=== PATIENT | male | born 1995 | race Caucasian/White ===

== ENCOUNTER 2018-04-08 18:49 | Emergency (ER) | payer OTHER ==
[~2018-04-08] VITALS: Ht 162.6 cm; Wt 79.8 kg
== END 2018-04-08 22:40 | disposition home or self-care (01) ==
LOC: ER 18:49
DX: M25.551 Pain in right hip (principal)

== ENCOUNTER 2023-12-09 13:02 | Emergency (ER) | payer OTHER ==
[~2023-12-09] VITALS: Ht 162.6 cm; Wt 84.4 kg
[2023-12-09 15:13] LABS: HEMATOCRIT 43.9 % (39.0-48.0); HEMOGLOBIN 14.9 g/dL (13-16.00); MEAN CELL VOLUME 77.7 fL (80.0-100.00); MEAN CORPUSCULAR HEMOGLOBIN 26.4 pg (27.00-32.0); MEAN CORPUSCULAR HGB CONC 33.9 g/dl (32.0-36.0); PLATELET COUNT 153 K/uL (150-450); RED BLOOD COUNT 5.65 M/uL (4.00-6.00); RED CELL DISTRIBUTION WIDTH 13.7 % (11.5-14.5)
[2023-12-09 15:33] LABS: CALCIUM 9.2 mg/dL (8.5-10.1); CREATININE SERUM 0.78 mg/dL (0.70-1.30); GFR 118.52; POTASSIUM 3.75 mEq/L (3.5-5.1)
== END 2023-12-09 17:43 | disposition home or self-care (01) ==
LOC: ER 13:03
PROVIDERS: General Practice
DX: I88.9 Nonspecific lymphadenitis, unspecified (principal)

== ENCOUNTER 2024-07-23 14:27 | Outpatient (CLI) | payer OTHER | END 2024-07-23 14:31 | disposition home or self-care (01) | LOC: RAD 14:27 | PROVIDERS: ATTEND Chiropractor | DX: M99.01 Segmental and somatic dysfunction of cervical region (principal); M99.02 Segmental and somatic dysfunction of thoracic region; M99.03 Segmental and somatic dysfunction of lumbar region ==

== ENCOUNTER 2024-08-08 09:36 | Outpatient (CLI) | payer OTHER | END 2024-08-08 10:00 | disposition home or self-care (01) | LOC: PPH VACUNA 09:36 | PROVIDERS: ATTEND Emergency Medicine Pediatric Emergency Medicine | DX: Z23 Encounter for immunization (principal) ==

== ENCOUNTER 2024-10-28 06:05 | Outpatient (CLI) | payer OTHER ==
[2024-10-28 06:55] LABS: HEMATOCRIT 43.1 % (39.0-48.0); HEMOGLOBIN 14.9 g/dL (13-16.00); MEAN CELL VOLUME 77.9 fL (80.0-100.00); MEAN CORPUSCULAR HEMOGLOBIN 26.9 pg (27.00-32.0); MEAN CORPUSCULAR HGB CONC 34.6 g/dl (32.0-36.0); PLATELET COUNT 210 K/uL (150-450); RED BLOOD COUNT 5.53 M/uL (4.00-6.00); RED CELL DISTRIBUTION WIDTH 13.7 % (11.5-14.5)
[2024-10-28 07:02] LABS: PH,URINE 6.5 (5.0-8.0); URINE APPEARANCE Clear; URINE BILIRRUBIN Negative (NEGATIVE); URINE BLOOD Negative; URINE COLOR Yellow; URINE GLUCOSE Negative (NEGATIVE); URINE KETONE Negative (NEGATIVE); URINE LEUKOCYTE Negative; URINE NITRATE Negative; URINE PROTEIN Negative (NEGATIVE); URINE UROBILINOGEN 0.2 E.U./dl
[2024-10-28 07:22] LABS: URINE BACTERIA 1.2 uL (0.0-1933); URINE EPITHELIAL CELLS 0.3 uL (0.0-38.8); URINE RBC 0.5 uL (0.0-20.8); URINE WBC 0.4 uL (0.0-23.2)
[2024-10-28 08:58] LABS: ALBUMIN 4.2 gm/dL (3.4-5.0); BILIRUBIN TOTAL 0.52 mg/dL (0.3-1.2); BILIRUBIN,CONJUGATED 0.16 mg/dL (0.0-0.2); BILIRUBIN,UNCONJUGATED 0.36 mg/dL (0.0-0.6); CALCIUM 8.9 mg/dL (8.5-10.1); CHOL HDL RATIO 3.1 (0-5.0); CREATININE SERUM 0.73 mg/dL (0.70-1.30); GFR 127.03; GLOBULINA 3.7 G/DL (2.4-3.5); POTASSIUM 3.48 mEq/L (3.5-5.1); T4 TOTAL 8.62 UG/DL (4.5-12.1); TOTAL PROTEIN 7.9 gm/dL (6.4-8.2); TSH 4.01 uIU/mL (0.358-3.74)
[2024-10-28 11:30] LABS: VITAMIN D3 25 HYDROXY 18.1 ng/ml (30-120)
== END 2024-10-28 06:27 | disposition home or self-care (01) ==
LOC: LAB 06:05
PROVIDERS: ATTEND General Practice
DX: Z11.3 Encounter for screening for infections with a predominantly sexual mode of transmission (principal); Z00.00 Encounter for general adult medical examination without abnormal findings; E78.5 Hyperlipidemia, unspecified; E55.9 Vitamin D deficiency, unspecified; R10.9 Unspecified abdominal pain; N39.0 Urinary tract infection, site not specified; R42 Dizziness and giddiness

== ENCOUNTER 2025-01-15 14:15 | Outpatient (CLI) | payer OTHER | END 2025-01-15 14:20 | disposition home or self-care (01) | LOC: RAD 14:15 | DX: M79.672 Pain in left foot (principal) ==

== ENCOUNTER 2025-01-21 14:03 | Outpatient (CLI) | payer OTHER | END 2025-01-21 14:05 | disposition home or self-care (01) | LOC: SONOGRAMA 14:03 | PROVIDERS: ATTEND General Practice | DX: E03.9 Hypothyroidism, unspecified (principal) ==

== ENCOUNTER 2025-06-25 10:31 | Outpatient (CLI) | payer OTHER ==
[2025-06-25 11:37] LABS: COVID-19 AG POSITIVE (NEGATIVE)
== END 2025-06-25 10:32 | disposition home or self-care (01) ==
LOC: LAB 10:31
PROVIDERS: ATTEND Preventive Medicine Occupational Medicine
DX: J11.1 Influenza due to unidentified influenza virus with other respiratory manifestations (principal); Z20.828 Contact with and (suspected) exposure to other viral communicable diseases

== ENCOUNTER 2025-08-21 07:40 | Outpatient (CLI) | payer OTHER | END 2025-08-21 07:50 | disposition home or self-care (01) | LOC: PPH VACUNA 07:40 | PROVIDERS: ATTEND Emergency Medicine Pediatric Emergency Medicine | DX: Z23 Encounter for immunization (principal) ==

== ENCOUNTER 2025-10-27 06:14 | Outpatient (CLI) | payer OTHER ==
[2025-10-27 07:09] LABS: URINE APPEARANCE Clear; URINE BILIRRUBIN Negative (NEGATIVE); URINE BLOOD Negative; URINE COLOR Yellow; URINE GLUCOSE Negative (NEGATIVE); URINE KETONE Negative (NEGATIVE); URINE LEUKOCYTE Negative; URINE NITRATE Negative; URINE PROTEIN Negative (NEGATIVE); URINE UROBILINOGEN 0.2 E.U./dl
[2025-10-27 07:18] LABS: URINE BACTERIA 3.4 uL (0.0-1933); URINE CAST 0.00 uL (0.0-1.40); URINE EPITHELIAL CELLS 0.1 uL (0.0-38.8); URINE RBC 1.1 uL (0.0-20.8); URINE WBC 0.2 uL (0.0-23.2)
[2025-10-27 07:51] LABS: BASO % 0.8 % (0.1-1.2); EOS # 0.16 (0.04-0.54); EOS % 3.0 % (0.7-7.0); LYMPH # 2.09 (1.18-3.74); LYMPH % 39.3 % (19.3-53.1); MEAN PLATELET VOLUME 10.00 fl (9.4-12.4); MONO # 0.44 (0.24-0.82); MONO % 8.3 % (4.7-12.5); NEUT # 2.58 (1.56-6.13); NEUT % 48.4 % (34.0-71.1); RED CELL DISTRIBUTION WIDTH 12.8 % (11.6-14.4)
[2025-10-27 08:25] LABS: ALT/SGPT 51.0 U/L (12-78); AST/SGOT 18.0 U/L (15-37); BILIRUBIN TOTAL 0.66 mg/dL (0.3-1.2); BILIRUBIN,CONJUGATED 0.15 mg/dL (0.0-0.2); BUN CREA RATIO 14.0 (7.0-25.0); CHOL HDL RATIO 3.1 (0-5.0); CREATININE SERUM 0.77 mg/dL (0.70-1.30); GFR 118.62; GLOBULINA 4.1 G/DL (2.4-3.5); GLUCOSE FASTING 89.0 mg/dL (65-100); HDL 50.0 mg/dl (40-60); LDL 92.0 mg/dl (0-130); OSMOLALITY SERUM 280.0 MOSM/KG (275-295); PROSTATIC SPECIFIC ANTIGEN 0.489 NG/ML (0.010-4.00); T3 UPTAKE 35.0 % (33-40); T4 TOTAL 7.08 UG/DL (4.5-12.1); TSH 3.65 uIU/mL (0.358-3.74); VLDL 13.0 (0-39)
[2025-10-27 10:37] LABS: VITAMIN D3 25 HYDROXY 20.55 ng/ml (30-120)
== END 2025-10-27 06:20 | disposition home or self-care (01) ==
LOC: LAB 06:14
PROVIDERS: ATTEND General Practice
DX: N39.0 Urinary tract infection, site not specified (principal); Z11.3 Encounter for screening for infections with a predominantly sexual mode of transmission; Z00.00 Encounter for general adult medical examination without abnormal findings; E78.5 Hyperlipidemia, unspecified; E55.9 Vitamin D deficiency, unspecified; Z12.5 Encounter for screening for malignant neoplasm of prostate; R10.9 Unspecified abdominal pain